=== PATIENT | male | born 2000 | race African-American/Black ===

== ENCOUNTER 2019-04-23 23:27 | Emergency (ER) | payer OTHER, MEDICAID ==
[~2019-04-23] VITALS: Ht 175.3 cm; Wt 73.0 kg
[2019-04-24] MEDS ORDERED: IBUPROFEN 600MG TABLET PO ONE (01:00)
[2019-04-24 02:15] VITALS: BP 120/60
[2019-04-24] MEDS ORDERED: ACETAMINOPHEN 325MG TABLET PO ONE (02:45)
== END 2019-04-24 02:45 | disposition home or self-care (01) ==
LOC: ER 23:27
DX: M25.562 Pain in left knee (principal); R51 Headache
CPT/HCPCS: 73562; 99283; L1830